=== PATIENT | male | born 1960 | race Caucasian/White ===

== ENCOUNTER 2021-10-05 08:00 | Outpatient (CLI) | payer MEDICARE, OTHER ==
--- NOTE | 2021-10-05 18:26 | XRAY Report ---
PROCEDURE: Knee 3 View RT INDICATIONS: KNEE JOINT PAIN, RIGHT TECHNIQUE: 3 views of the right knee(s) were acquired. COMPARISON: None. FINDINGS: Bones: No fractures or dislocations. No suspicious bony lesions. No acute bony abnormality is seen . There is mild medial femorotibial joint space narrowing, with associated degenerative change with sub chondral sclerosis and osteophyte formation. On the sunrise view, there is moderate patellofemoral [place] int space narrowing, with associated remodeling changes, including spurs along the margins of the pat franco. Soft tissues: There is a mild joint effusion. No suspicious soft tissue calcifications. IMPRESSION: Osteoarthritic degenerative changes are seen, which are overall worst involving the bui llofemoral joint. No acute bony abnormality is seen by plain film. Mild joint effusion. If it would be helpful for clinical management decision making, please consider a dedicated, schedule d knee MRI for further evaluation (assuming that there is no contraindication). Reviewed by: Senthil Calderon MD on 10/05/2021 5:24 PM [facility] Approved by: Senthil Calderon MD on 10/05/2021 5:24 PM [facility] Station ID: [id number]
== END 2021-10-05 23:59 | disposition home or self-care (01) ==
LOC: DI.N 08:00
PROVIDERS: ATTEND Family Medicine
DX: M17.11 Unilateral primary osteoarthritis, right knee (principal)